=== PATIENT | female | born 1975 | race Caucasian/White ===

== ENCOUNTER 2020-02-24 12:07 | Emergency (ER) | payer OTHER ==
[~2020-02-24] VITALS: Ht 167.6 cm; Wt 54.4 kg
[2020-02-24] MEDS ORDERED: MIRENA1 EACH VAG (12:18)
[2020-02-24] MEDS ORDERED: NEO-BACIT-POLY3.5 GM TOP (13:35)
[2020-02-24] MEDS ORDERED: IBUPROFEN 600600 M1 PO (13:35)
[2020-02-24 13:47] VITALS: BP 139/85
== END 2020-02-24 13:47 | disposition home or self-care (01) ==
LOC: M.ERS 12:07
DX: S00.11XA Contusion of right eyelid and periocular area, initial encounter (principal); I10 Essential (primary) hypertension; K11.5 Sialolithiasis; I12.0 Hypertensive chronic kidney disease with stage 5 chronic kidney disease or end stage renal disease; E11.22 Type 2 diabetes mellitus with diabetic chronic kidney disease; N18.6 End stage renal disease; F17.210 Nicotine dependence, cigarettes, uncomplicated; Z98.890 Other specified postprocedural states; Z88.0 Allergy status to penicillin; Z88.1 Allergy status to other antibiotic agents; Z88.6 Allergy status to analgesic agent; Y04.0XXA Assault by unarmed brawl or fight, initial encounter; Y93.89 Activity, other specified; Y92.89 Other specified places as the place of occurrence of the external cause; Y99.8 Other external cause status